=== PATIENT | male | born 1965 | race Caucasian/White ===

== ENCOUNTER 2017-03-03 09:43 | Emergency (ER) | payer OTHER ==
[~2017-03-03] VITALS: Ht 177.8 cm; Wt 97.1 kg
--- NOTE | ~2017-03-03 | US85 ---
[facility] A Service of [facility] RADIOLOGY TEXT RESULTS PATIENT: TIGRE LUCIANO LOCATION: [facility] : 63 UNIT #: [id number] AGE: [address]: MICAELA VELIZ SEX: M ORDER DR: [id number] [place] [id number] [facility]. [address] [id number] E MR#: [id number] Acc #: [id number] NAME: TIGRE LUCIANO : 1965 SEX: M STUDY DATE/TIME: 03/03/2017 11:34 UNIT: [facility] ROOM: STUDY DESCRIPTION: [facility] Attending Physician: Micaela Veliz Aprn Ordering Physician: Micaela Veliz Aprn Primary Care Physician: Primary Care Physician No MEDICAL IMAGING REPORT This report is preliminary unless electronic signature is present EXAM Lower extremity venous ultrasound 03/03/2017 HISTORY Right knee pain for 1 day. No injury or surgeries. No history of DVT. Takes anticoagulants. TECHNIQUE Venous ultrasound examination of the right lower extremity was performed using grayscale, spectral Doppler and color flow Doppler imaging. FINDINGS The examination is negative. There is no evidence of right lower extremity deep venous thrombus from the groin to the lower calf. Visualized greater saphenous vein is also patent. IMPRESSION Negative examination. No evidence of right lower extremity deep venous thrombosis. Dictated by... Jose Antonio Peck M.D. THIS IS AN ELECTRONICALLY VERIFIED REPORT Jose Antonio Peck M.D. at 03/04/2017 4:57 PM RYAN/joan TD: 03/04/2017 06:48 JOB #: [id number] [facility] A Service [facility] RADIOLOGY TEXT RESULTS PATIENT: TIGRE LUCIANO LOCATION: [facility] : 63 UNIT #: [id number] AGE: [address]: MICAELA VELIZ SEX: M ORDER DR: MEDICAL IMAGING REPORT Page 1 of 1 COPY
--- NOTE | ~2017-03-03 | CR173 ---
[facility] A Service of [facility] RADIOLOGY TEXT RESULTS PATIENT: TIGRE LUCIANO LOCATION: [facility] : 63 UNIT #: [id number] AGE: [address]: MICAELA VELIZ SEX: M ORDER DR: [id number] [place] [id number] [facility]. [place], [place] [address] [id number] E MR#: [id number] Acc #: [id number] NAME: TIGRE LUCIANO : 1965 SEX: M STUDY DATE/TIME: 03/03/2017 11:43 UNIT: [facility] ROOM: STUDY DESCRIPTION: CR Knee 3 Views Rt Attending Physician: Micaela Veliz Aprn Ordering Physician: Micaela Veliz Aprn Primary Care Physician: No Primary Care Physician MEDICAL IMAGING REPORT This report is preliminary unless electronic signature is present EXAMINATION Three views of the right knee. DATE 03/03/2017, 11:43. HISTORY Pain and swelling of the right knee, unable to straighten knee all the way for the AP image. Symptoms have been present for one day. No known injury. COMPARISON Two views of the right knee, 05/11/2009. FINDINGS Large suprapatellar joint effusion is seen. Calcified loose body is seen within the suprapatellar region measuring nearly 1.5 cm. Tricompartment osteophytosis is present, greatest within the patellofemoral and lateral compartments. There is mild patellofemoral and moderate lateral compartment joint space narrowing. IMPRESSION 1. [id number]-[id number]-nzyac suprapatellar joint effusion. Calcified loose body in the suprapatellar joint space measuring 1.5 cm. 2. Moderate lateral, mild patellofemoral compartment joint space narrowing. Tricompartmental osteophytosis, greatest in the patellofemoral and lateral compartments. 3. No acute fracture dislocation. Dictated by... Virginia Garcia M.D. [facility] A Service [facility] RADIOLOGY TEXT RESULTS PATIENT: TIGRE LUCIANO LOCATION: [facility] : 63 UNIT #: [id number] AGE: [address]: MICAELA VELIZ SEX: M ORDER DR: THIS IS AN ELECTRONICALLY VERIFIED REPORT Virginia Garcia M.D. at 03/04/2017 9:50 AM [place] TD: 03/04/2017 00:20 JOB #: [id number] MEDICAL IMAGING REPORT Page 1 of 1 COPY
[~2017-03-03 09:43] MED LIST: ACETAMINOPHEN325 MG PO; AMLODIPINE BESYL5 MG PO; ASPIRIN EC81 M1 PO; ASPIRIN PO; ASPIRIN81 MG PO; CARVEDILOL6.25 MG PO; CHLORTHALIDONE25 MG PO; COMBIVENT U/D3 M1 INH; COREG6.25 M1 PO; CYCLOBENZAPRINE5 MG PO; DICLOFENAC PO; EFFIENT10 MG PO; FLEXERIL10 MG PO; HYDRALAZINE HCL50 MG PO; HYDROCHLOROTHIA25 MG PO; IMDUR-ER30 M1 PO; IMDUR-ER30 MG PO; K-DUR10 MEQ PO; KCL PO; LASIX PO; LIPITOR20 MG PO; LISINOPRIL-HCTZ1 T20 PO; LISINOPRIL10 MG PO; LORTAB 10/500 T1 TAB PO; MEDROL4 MG/DOSE- PO; NITROSTAT0.4 MG SL; NORVASC PO; NORVASC10 MG PO; NYSTATIN5 ML PO; OMEPRAZOLE40 M1 PO; PANTOPRAZOLE SO40 MG PO; PRINIVIL10 MG PO; PRINIVIL20 M1 PO; PROAIR HFA8.5 GM IH; PROAIR RESPICL90 MCG PO; RANITIDINE HCL150 M1 PO; SYMBICORT INH; TRIAMTERENE-HCT1 TA6 PO; VICODIN 5/1 TAB 5/50 PO; VICODIN 5/500 T1 TAB PO
== END 2017-03-03 13:22 | disposition home or self-care (01) ==
LOC: CFTX 09:43 → CED 09:43 → CFTX 12:03
DX: M25.461 Effusion, right knee (principal); M79.89 Other specified soft tissue disorders; E78.5 Hyperlipidemia, unspecified; I10 Essential (primary) hypertension; I25.2 Old myocardial infarction; F17.210 Nicotine dependence, cigarettes, uncomplicated; Z88.0 Allergy status to penicillin; Z98.890 Other specified postprocedural states; Z79.82 Long term (current) use of aspirin; Z79.899 Other long term (current) drug therapy
CPT/HCPCS: 29505; 73562; 93971; 99284